=== PATIENT | female | born 1940 | race Caucasian/White ===

== ENCOUNTER → 2018-03-19 | Outpatient (CLI) | payer MEDICARE | END | disposition home or self-care (01) | LOC: RAH 10:44 | PROVIDERS: ATTEND Obstetrics & Gynecology | DX: C50.919 Malignant neoplasm of unspecified site of unspecified female breast (principal); R92.8 Other abnormal and inconclusive findings on diagnostic imaging of breast; Z90.12 Acquired absence of left breast and nipple | CPT/HCPCS: 77065 ==

== ENCOUNTER → 2019-05-22 | Outpatient (CLI) | payer MEDICARE | END | disposition home or self-care (01) | LOC: RAH 10:23 | PROVIDERS: ATTEND Obstetrics & Gynecology | DX: Z85.3 Personal history of malignant neoplasm of breast (principal); Z90.12 Acquired absence of left breast and nipple | CPT/HCPCS: 77065 ==